=== PATIENT | female | born 1985 | race African-American/Black ===

== ENCOUNTER 2019-09-14 20:26 | Emergency (ER) | payer OTHER ==
[~2019-09-14] VITALS: Ht 165.1 cm; Wt 99.8 kg
[2019-09-14] MEDS ORDERED: NORVASC 2.5 MG2.5 M1 PO (20:45)
[2019-09-14] MEDS ORDERED: TRAZODONE 150150 M1 PO (20:46)
[2019-09-14] MEDS ORDERED: MOBIC7.5 MG PO (22:05)
[2019-09-14 22:25] VITALS: BP 163/108
== END 2019-09-14 22:25 | disposition home or self-care (01) ==
LOC: ER 20:26
DX: S93.492A Sprain of other ligament of left ankle, initial encounter (principal); F41.9 Anxiety disorder, unspecified; I10 Essential (primary) hypertension; F17.210 Nicotine dependence, cigarettes, uncomplicated; X50.0XXA Overexertion from strenuous movement or load, initial encounter; Y92.89 Other specified places as the place of occurrence of the external cause; Y93.89 Activity, other specified; Y99.8 Other external cause status